=== PATIENT | female | born 1950 | race Caucasian/White ===

== ENCOUNTER 2020-07-21 10:37 | Outpatient (CLI) | payer MEDICARE, SELFPAY ==
--- NOTE | ~2020-07-21 | MM_ITS ---
EXAMINATION: MM screening [facility] w robin HISTORY: Screening mammogram TECHNIQUE: Craniocaudal and mediolateral oblique 3-D tomosynthesis images were obtained and synthetic 2-D images were generated. CAD analysis was submitted and interpreted. COMPARISON: 07/10/2019, 05/19/2018, 06/30/2016 by lateral digital screening mammogram examinations BREAST PARENCHYMAL COMPOSITION: There are scattered areas of fibroglandular density. FINDINGS: Occasional bilateral benign calcifications. There is no evidence of suspicious mass, calcif ication, or architectural distortion to suggest malignancy in either breast. There has been no suspic ious interval change. IMPRESSION: 1. No mammographic evidence of malignancy. 2. Recommend routine screening mammography in one year. BI-RADS Category 2: Benign finding(s). Reviewed, dictated and finalized at location A. [facility]
== END 2020-07-21 10:38 | disposition home or self-care (01) ==
LOC: ANHIMG 10:42
PROVIDERS: PCP Family Medicine; Visit Provider Obstetrics & Gynecology
DX: Z12.31 Encounter for screening mammogram for malignant neoplasm of breast (principal)
CPT/HCPCS: 77063; 77067

== ENCOUNTER 2021-08-19 10:46 | Outpatient (CLI) | payer MEDICARE, SELFPAY ==
--- NOTE | ~2021-08-19 | MM_ITS ---
EXAMINATION: MM screening [facility] w robin HISTORY: Screening TECHNIQUE: Craniocaudal and mediolateral oblique 3-D tomosynthesis images were obtained and synthetic 2-D images were generated. CAD analysis was submitted and interpreted. COMPARISON: Comparison to multiple prior studies sequentially, with oldest reviewed study dated 04/11. BREAST PARENCHYMAL COMPOSITION: There are scattered areas of fibroglandular density. FINDINGS: There is no evidence of suspicious mass, calcification, or architectural distortion to sugg est malignancy in either breast. There has been no suspicious interval change. IMPRESSION: 1. No mammographic evidence of malignancy. 2. Recommend routine screening mammography in one year. BI-RADS Category 1: Negative Reviewed, dictated and finalized at location A. [employer]
== END 2021-08-19 10:47 | disposition home or self-care (01) ==
LOC: ANHIMG 10:48
PROVIDERS: PCP Family Medicine Sports Medicine; Visit Provider Obstetrics & Gynecology
DX: Z12.31 Encounter for screening mammogram for malignant neoplasm of breast (principal)
CPT/HCPCS: 77063; 77067

== ENCOUNTER 2021-11-18 08:50 | Outpatient (CLI) | payer MEDICARE, SELFPAY ==
--- NOTE | 2021-11-18 09:18 | ECG_ITS ---
Measurements Intervals [place] Rate: 52 P: 46 VT: 209 QRS: 28 QRSD: 107 T: 56 QT: 429 QTc: 403 Interpretive Statements SINUS BRADYCARDIA WITH 1ST DEGREE AV BLOCK CANNOT RULE OUT ANTERIOR MYOCARDIAL INFARCTION , OF INDETERMINATE AGE [30 ms Q WAVE IN V3/V4, OR R < 0.2 mV IN V4] ABNORMAL ECG NO PREVIOUS ECG AVAILABLE FOR COMPARISON Electronically Signed On 11-18-2021 17:59:43 CDT by Tommy Fletcher M.D.
== END 2021-11-18 08:51 | disposition home or self-care (01) ==
LOC: ANHCARD 08:53
PROVIDERS: PCP Family Medicine Sports Medicine; Visit Provider Family Medicine Sports Medicine
DX: Z01.818 Encounter for other preprocedural examination (principal)
CPT/HCPCS: 93005

== ENCOUNTER 2022-01-29 10:15 | Outpatient (CLI) | payer MEDICARE, SELFPAY ==
--- NOTE | 2022-01-29 | ECG_ITS ---
Measurements Intervals [place] Rate: 56 P: 14 NM: 203 QRS: 35 QRSD: 110 T: 46 QT: 418 QTc: 405 Interpretive Statements SINUS BRADYCARDIA BORDERLINE AV CONDUCTION DELAY DELAYED PRECORDIAL R/S TRANSITION BORDERLINE ECG Electronically Signed On 01-29-2022 12:01:18 CDT by Olu Bro D.O.
[2022-01-29 11:24] LABS: Hematocrit 39.8 % (37.0-47.0); Mean Corpuscular HGB Conc 32.7 g/dl (32-36); Mean Corpuscular Hemoglobin 32.7 pg (26-34); Mean Corpuscular Volume 100.3 fl (80-100); Mean Platelet Volume 9.8 fl (7.4-10.4); Platelet Count Result 260 k/mm3 (150-375); Red Blood Count 3.97 M/mm3 (4.2-5.4); White Blood Count 5.9 K/mm3 (4.5-10.0)
[2022-01-29 11:35] LABS: Alanine Aminotransferase 21 U/L (6-35); Albumin Level 3.9 g/dL (3.5-5.1); Alkaline Phosphatase 66 U/L (38-126); Anion Gap 2 mmol/L (8-16); Aspartate Amino Transferase 29 U/L (14-36); Bilirubin,Total 0.2 mg/dL (0.2-1.3); Blood Urea Nitrogen 27 mg/dL (7-17); Calcium 8.9 mg/dL (8.4-10.2); Carbon Dioxide 31 mmol/L (22-30); Chloride 104 mmol/L (98-107); Estimated Glomerular Filt Rate > 60; Glucose 93 mg/dL (65-110); Potassium 4.2 mmol/L (3.4-5.0); Sodium 137 mmol/L (137-145)
== END 2022-01-29 10:16 | disposition home or self-care (01) ==
PROVIDERS: PCP Family Medicine Sports Medicine
DX: Z01.818 Encounter for other preprocedural examination (principal); G56.01 Carpal tunnel syndrome, right upper limb
CPT/HCPCS: 36415; 80053; 85027; 93005

== ENCOUNTER 2023-01-23 02:42 | Emergency (ER) | payer MEDICARE, SELFPAY ==
[2023-01-23] VITALS (7 sets, daily range): BP systolic 102–123; BP diastolic 46–82; PULSE 58–75; RESP 14–21; TEMP 36.4; O2SAT 94–100
--- NOTE | ~2023-01-23 | CT_ITS ---
EXAMINATION: CT abdomen pelvis w con DATE: 01/23/2023 05:01 INDICATION: Epigastric abdominal pain. Chest pain. TECHNIQUE: Computed tomography (CT) of the abdomen and pelvis was performed with 100 CC Omnipaque 350 intravenous contrast. Automated exposure control and iterative reconstruction technique were employe d. Exam dose: 1208.93 mGy-cm total exam DLP. COMPARISON: 02/07/2018 CT abdomen pelvis FINDINGS: The lung bases are clear. No pericardial or pleural effusion. Small sliding hiatal hernia. Status post Lavern-en-Y gastric bypass surgery. Dependent 1.8 cm gallstone. No gallbladder wall thickening or pericholecystic fluid or fat stranding. No hepatic, splenic, pancreatic, and adrenal or left renal space occupying mass lesion. Approximately 9.6 cm lower pole right renal cyst. No urinary tract calculus or hydroureteronephrosis. There is atherosclerotic calcification of the abdominal aorta. Prominent calcifications at the origin s of the renal arteries. No intraperitoneal or retroperitoneal or pelvic mass lesion or adenopathy or ascites. Diverticulosis of the colon; no CT evidence of diverticulitis. Normal appendix. No bowel obstruction, bowel wall thickening, pneumatosis or intraperitoneal free air is detected. Retroverted uterus. Degenerative changes of the lower thoracic and particularly lumbar spine including severe degenerativ e disc disease at L1-2, moderately severe degenerative disc disease at L2-3, degenerative changes apo physeal joints with associated grade 1 anterolisthesis at L4-5. No suspicious osteolytic or osteoblastic lesions are noted. IMPRESSION: Small sliding hiatal hernia Status post Lavern-en-Y gastric bypass surgery Cholelithiasis 2 9.6 cm lower pole right renal cyst Diverticulosis of the colon; no evidence of diverticulitis Reviewed, dictated and finalized at Location A. Reviewed, dictated and finalized at location A.
--- NOTE | ~2023-01-23 | US_ITS ---
US abdomen limited DATE: 01/23/2023 09:49 INDICATION: Right upper quadrant abdominal pain TECHNIQUE: Real-time imaging of liver, pancreas, gallbladder COMPARISON: 01/23/2023 CT abdomen pelvis 06/20/2017 abdominal ultrasound complete FINDINGS: Cholelithiasis is confirmed. Gallbladder wall thickness is borderline. Negative sonographic Baltazar's sign. No pericholecystic abnormal fluid collection. The common bile duct measures 5.2 mm, w ithin normal range. No hepatic space-occupying mass lesion is evident. Normal hepatopedal portal venous flow direction. Approximately 10 cm right renal cyst. IMPRESSION: Cholelithiasis Reviewed, dictated and finalized at Location A. Reviewed, dictated and finalized at location A. IMPRESSION: Cholelithiasis
--- NOTE | 2023-01-23 02:45 | ECG_ITS ---
Measurements Intervals [place] Rate: 63 P: 74 CT: 211 QRS: 1 QRSD: 112 T: 43 QT: 409 QTc: 419 Interpretive Statements SINUS RHYTHM WITH FIRST DEGREE AV BLOCK POSSIBLE ANTERIOR AND INFERIOR MYOCARDIAL INFARCTION , OF INDETERMINATE AGE [30 ms Q WAVE IN V3/V4, OR R < 0.2 mV IN V4] ABNORMAL ECG COMPARED TO ECG 01/29/2022 11:04:41 FIRST DEGREE AV BLOCK NOW PRESENT Electronically Signed On 01-23-2023 8:32:57 CDT by Rahul Lunsford M.D.
--- NOTE | 2023-01-23 02:56 | ED.CHESTPAIN ---
HPI - Chest Pain General Chief Complaint: Chest Pain <Mike Solitario MD - Last Filed: 01/24/23 18:12> Stated Complaint: cp <Mike Solitario MD - Last Filed: 01/24/23 18:12> Time Seen by Provider: 01/23/23 02:42 <Mike Solitario MD - Last Filed: 01/24/23 18:12> History of Present Illness HPI narrative: 72-year-old female presented the emergency department for evaluation of upper abdominal pain. Patient states that she was driving home from work at 4 AM and had onset of the pain. Patient did take some Tums at home but this did not improve her pain. Patient does have associated nausea. Patient does have a prior history of gastric bypass in 2019. Patient also has history of perforated diverticulitis in 2005. Patient also had a hernia repair in 2019. Patient states that she has no prior history of [place]. Patient did have a abnormal heart rhythm in 2019 prior to her gastric bypass and therefore did have an Angiocath performed and this was clear. Patient has no cardiac stents. In route patient was treated with aspirin and nitro and patient had no improvement of her pain. <Mike Solitario MD - Last Filed: 01/24/23 18:12> Related Data Home Medications: Home Medications Medication Instructions Recorded Confirmed calcium citrate-vitamin D3 500 tablet PO ONCE 06/04/19 08/20/19 mg-200 unit chewable tablet cyanocobalamin (vitamin B-12) 5,000 mcg PO DAILY 06/04/19 08/20/19 5,000 mcg capsule multivitamin 1 tablet PO DAILY 06/04/19 primidone 50 mg tablet 100 mg PO .qhs 08/20/19 08/20/19 <Mike Solitario MD - Last Filed: 01/24/23 18:12> Allergies/Adverse Reactions: Allergies Allergy/AdvReac Type Severity Reaction Status Date / Time erythromycin base Allergy Unknown Unknown Verified 01/23/23 02:56 <Mike Solitario MD - Last Filed: 01/24/23 18:12> Review of Systems Review of Systems: All systems reviewed & are unremarkable except as noted in HPI and below <Mike Solitario MD - Last Filed: 01/24/23 18:12> [facility] Past Medical History Medical History: Medical History (Updated 01/24/23 @ 00:00 by Background Daezequiel) Asthma Cyst of right kidney Essential tremor GERD (gastroesophageal reflux disease) Seasonal allergies <Mike Solitario MD - Last Filed: 01/24/23 18:12> Surgical History Surgical History: Surgical History Cataract, left eye Cataract, right eye Gastric bypass status for obesity History of partial colectomy History of total replacement of left shoulder joint delivered by caesarean section, 1,000-1,249 grams, 29-30 completed weeks <Mike Solitario MD - Last Filed: 01/24/23 18:12> Family History Family History: Family History Father Diabetes mellitus, Onset Age: 82 Hypertension, Onset Age: 82 Mother Family history of Alzheimer's disease, Onset Age: 77 Other Family history of coronary artery disease <Mike Solitario MD - Last Filed: 01/24/23 18:12> Social History Social History: Social History Smoking status: Never smoker Alcohol intake: former Substance use: never Gender identity (if verbalized by the patient): Female <Mike Solitario MD - Last Filed: 01/24/23 18:12> Exam Narrative: APPEARANCE: Well appearing, no pain, no distress, well-nourished. HEAD: normocephalic, atraumatic. EYES: PERRLA/EOMI, conjunctivae clear. NOSE: Normal no drainage NECK: Supple. No adenopathy, no masses. RESPIRATORY: Airway patent, respirations nonlabored. Clear to auscultation bilaterally, no rales, rhonchi, wheezing. CARDIOVASCULAR: Regular rate and rhythm without murmurs rubs or gallops. ABDOMINAL: Soft, gastric tenderness to palpation, normal bowel sounds MUSCULOSKELETAL: Moves all extremities. Strength/ROM intact, No edema, N
[2023-01-23] MEDS: ONDANSETRON INJ 4 MG/2 ML VIAL IV PUSH (02:58)
[2023-01-23] MEDS: HYDROmorphone HCL INJ (*CRX) 1 MG/ML SYR 0.5 MG IV PUSH (02:58)
[2023-01-23 03:13] LABS: Basophils Absolute Auto 0.1 K/mm3 (0.0-0.1); Basophils Percent Auto 0.7 % (0.2-1.2); Eosinophils Absolute Auto 0.4 K/mm3 (0-0.3); Eosinophils Percent Auto 5.8 % (0-4.4); Hematocrit 41.4 % (37.0-47.0); Hemoglobin 13.7 g/dL (12.0-15.0); Immature Granulocyte Absolute 0.02 K/mm3 (0.00-0.031); Immature Granulocyte Percent A 0.3 % (0-0.5); Lymphocytes Absolute Auto 2.03 K/mm3 (0.9-3.2); Mean Corpuscular HGB Conc 33.1 g/dl (32-36); Mean Corpuscular Hemoglobin 33.5 pg (26-34); Mean Corpuscular Volume 101.2 fl (80-100); Mean Platelet Volume 9.8 fl (7.4-10.4); Monocytes Absolute Auto 0.6 K/mm3 (0.1-0.6); Monocytes Percent Auto 9.2 % (2.6-8.5); Neutrophils Absolute Auto 3.7 K/mm3 (1.3-6.7); Platelet Count Result 225 k/mm3 (150-375); Red Blood Count 4.09 M/mm3 (4.2-5.4); Red Cell Distribution Width 12.5 % (11.5-14.5); White Blood Count 6.8 K/mm3 (4.5-10.0)
[2023-01-23 03:29] LABS: Lactic Acid Reflex 1.2 mmol/L (0.7-2.0); Lipase 349 U/L (23-300)
--- NOTE | 2023-01-23 03:41 | PC.NURSE ---
0335 - Called into pt room. Pt stated that her right arm was tingling and going numb. Provider and RN made aware.
[2023-01-23 03:42] LABS: Troponin I < 0.012 ng/mL (0.000-0.034)
[2023-01-23] MEDS: BELLADONNA ALK/PHENOB ELIX 10 ML, MAG HYDROX/ALUMINUM HYD/SIMETH 30 ML, LIDOCAINE HCL 2... PO (03:58)
[2023-01-23 04:09] LABS: Alanine Aminotransferase 30 U/L (6-35); Albumin Level 4.2 g/dL (3.5-5.1); Alkaline Phosphatase 63 U/L (38-126); Anion Gap 6 mmol/L (8-16); Aspartate Amino Transferase 63 U/L (14-36); Bilirubin,Total 0.5 mg/dL (0.2-1.3); Blood Urea Nitrogen 43 mg/dL (7-17); Calcium 9.5 mg/dL (8.4-10.2); Carbon Dioxide 29 mmol/L (22-30); Chloride 102 mmol/L (98-107); Estimated CRCL calculation 59 ml/min; Estimated Glomerular Filt Rate > 60; Glucose 99 mg/dL (65-110); Potassium 4.2 mmol/L (3.4-5.0); Sodium 137 mmol/L (137-145)
[2023-01-23 06:03] LABS: Troponin I < 0.012 ng/mL (0.000-0.034)
== END 2023-01-23 12:16 | disposition home or self-care (01) ==
PROVIDERS: Emergency Medicine; Emergency Provider Preventive Medicine Aerospace Medicine; PCP Family Medicine Sports Medicine
DX: K80.20 Calculus of gallbladder without cholecystitis without obstruction (principal); Z98.84 Bariatric surgery status; K21.9 Gastro-esophageal reflux disease without esophagitis
CPT/HCPCS: 36415; 74177; 76705; 80053; 83605; 83690; 84484; 85025; 93005; 96374; 96375; 99284; A9270; J1170; J2405; Q9967

== ENCOUNTER 2023-03-04 11:36 | Outpatient (CLI) | payer MEDICARE, SELFPAY ==
--- NOTE | ~2023-03-04 | NM_ITS ---
EXAMINATION: NM hepatobiliary wo pharm DATE: 03/04/2023 15:39 INDICATION: Calculus of gallbladder without cholecystitis. COMPARISON: Ultrasound 01/23/2023 TECHNIQUE: 4.0 mCi Tc-99m mebrofenin (Choletec) was administered intravenously. Scintigraphic images of the abdomen were obtained for one hour. Then, the patient drank 8 oz Ensure, and imaging was cont inued for 60 minutes. FINDINGS: There is normal clearance of radiotracer from the blood pool. There is homogeneous tracer u ptake by the liver. Activity progresses to the bowel and gallbladder. Gallbladder ejection fraction (GBEF) was 70%. Note that with this technique, normal GBEF >= 33%. IMPRESSION: 1. Normal hepatobiliary scintigraphy. Reviewed, dictated and finalized at location B.
== END 2023-03-04 11:37 | disposition home or self-care (01) ==
PROVIDERS: PCP Family Medicine Sports Medicine; Visit Provider Surgery
DX: K80.20 Calculus of gallbladder without cholecystitis without obstruction (principal); R10.11 Right upper quadrant pain
CPT/HCPCS: 78226; A9537

== ENCOUNTER 2023-03-08 09:02 | Outpatient (CLI) | payer MEDICARE, SELFPAY ==
--- NOTE | ~2023-03-08 | MM_ITS ---
EXAMINATION: MM screening [facility] BI w robin HISTORY: Screening mammogram TECHNIQUE: Craniocaudal and mediolateral oblique 3-D tomosynthesis images were obtained and synthetic 2-D images were generated. CAD analysis was submitted and interpreted. COMPARISON: 08/19/2021, 07/21/2020, 07/10/2019 BREAST PARENCHYMAL COMPOSITION: There are scattered areas of fibroglandular density. FINDINGS: No suspicious mass, calcification, or architectural distortion are identified in either yung ast to suggest malignancy. There has been no suspicious interval change. IMPRESSION: 1. No mammographic evidence of malignancy. 2. Recommend routine screening mammography in one year. BI-RADS Category 1: Negative Reviewed, dictated and finalized at location A.
== END 2023-03-08 09:03 | disposition home or self-care (01) ==
PROVIDERS: PCP Family Medicine Sports Medicine; Visit Provider Obstetrics & Gynecology
DX: Z12.31 Encounter for screening mammogram for malignant neoplasm of breast (principal)
CPT/HCPCS: 77063; 77067

== ENCOUNTER 2024-05-05 08:30 | Outpatient (CLI) | payer MEDICARE, SELFPAY ==
--- NOTE | ~2024-05-05 | MM_ITS ---
EXAMINATION: MM screening [facility] BI w robin HISTORY: Screening TECHNIQUE: Craniocaudal and mediolateral oblique 3-D tomosynthesis images were obtained and synthetic 2-D images were generated. CAD analysis was submitted and interpreted. COMPARISON: Comparison to multiple prior studies sequentially, with oldest reviewed study dated 07/01. BREAST PARENCHYMAL COMPOSITION: Not Dense: The breasts are almost entirely fatty. FINDINGS: There is no evidence of suspicious mass, calcification, or architectural distortion to sugg est malignancy in either breast. There has been no suspicious interval change. IMPRESSION: 1. No mammographic evidence of malignancy. 2. Recommend routine screening mammography in one year. BI-RADS Category 1: Negative Reviewed, dictated and finalized at location B.
== END 2024-05-05 08:31 | disposition home or self-care (01) ==
LOC: ANHIMG 08:33
PROVIDERS: PCP Family Medicine; Visit Provider Obstetrics & Gynecology
DX: Z12.31 Encounter for screening mammogram for malignant neoplasm of breast (principal)
CPT/HCPCS: 77063; 77067